=== PATIENT | female | born 1995 | race Caucasian/White ===

== ENCOUNTER 2019-01-16 12:45 | Outpatient (CLI) | payer OTHER ==
--- NOTE | 2019-01-18 09:30 | Ultrasound Report ---
Reason: TEST POSITIVE Procedure Date: 01/16/2019 Accession Number: [id number] / [id number] Procedure: US - OB First Trimester CPT Code: FULL RESULT: EXAM: FIRST TRIMESTER OBSTETRIC ULTRASOUND (Less than 11 weeks) EXAM DATE: 01/16/2019 12:59 PM. CLINICAL HISTORY: test positive. LMP: 11/17/2018. COMPARISONS: None. TECHNIQUE: Transabdominal and transvaginal ultrasound examination with static image documentation. CLINICAL DATES: EGA 8 weeks 4 days with NICK 08/24/2019 based on LMP. ASSESSMENT: Gestational Sac: Single intrauterine. Embryo: CRL (crown-rump length) 10.4 mm = 7 weeks 1 day with an NICK of 09/03/2019. Cardiac activity: 149 beats per minute. Yolk sac: 3 mm. Amniotic fluid: Not accurately assessed at this gestational age. Early placenta: Not visible at this gestational age. Other: No perigestational fluid collection demonstrated. MATERNAL STRUCTURES: Uterus: Anteverted. Unremarkable. Cervix: Closed. Right Ovary/Adnexa: The ovary measures 2.5 x 1.5 x 1.7 cm, volume 3.4 cc. Unremarkable. Left Ovary/Adnexa: Left ovary not well evaluated due to the large anechoic left ovarian cyst measuring 6.8 x 5.8 x 6.4 cm. This cyst has probably replaced the majority of the left ovarian parenchyma. No obvious mural nodules with thickened septations. No left adnexal mass lesion. Free Fluid: None. Other: None. IMPRESSION: 1. Single viable intrauterine at EGA 7 weeks 1 day with NICK 09/03/2019 based on crown-rump length, which is discordant with clinical dates. 2. Assigned dating is NICK 09/03/2019 based on current ultrasound. 3. No complications such as a subchorionic hemorrhage. 4. Anechoic 6.8 cm left ovarian cyst has largely replaced the left ovarian parenchyma. No concerning adnexal lesion. Normal right ovary. [facility]
== END 2019-01-16 12:46 | disposition home or self-care (01) ==
LOC: DI 12:45
PROVIDERS: ATTEND Obstetrics & Gynecology
DX: Z32.01 Encounter for pregnancy test, result positive (principal)
CPT/HCPCS: 76801; 76817